=== PATIENT | female | born 1990 | race Caucasian/White ===

== ENCOUNTER 2018-01-14 17:06 | Emergency (ER) | payer SELFPAY ==
--- NOTE | 2018-01-14 17:45 | UC ---
Abdominal Pain Female HPI - HPI Summary HPI Summary: 27-year-old female presents reporting onset of abdominal pain and vomiting at 3 AM yesterday morning. States she had several episodes of vomiting and diarrhea throughout the day yesterday but it has subsided today. She continues to have some mild upper abdominal cramping. She has been able to eat and keep fluids down today. Denies any fever, chills, chest pain, shortness of breath, back or flank pain, dysuria, frequency, urgency, hematuria, or vaginal discharge. Last menstrual period was approximately one month ago. She does have an IUD but does not use any other form of contraception. - History of Current Complaint Chief Complaint: UCAbdominalPain Stated Complaint: ABDOMINAL COMPLAINT Time Seen by Provider: 01/14/18 17:24 Hx Obtained From: Patient Hx Last Menstrual Period: iud Onset/Duration: Sudden Onset, Lasting Days - 1 Severity Currently: Mild Pain Intensity: 6 Location: Epigastric Radiates: No Character: Cramping Aggravating Factor(s): Nothing Alleviating Factor(s): Nothing Associated Signs and Symptoms: Positive: Nausea, Vomiting, Diarrhea. Negative: Fever, Chest Pain, Back Pain, Constipation, Blood in Stool, Urinary Symptoms, Vaginal Discharge Allergies/Adverse Reactions: Allergies Allergy/AdvReac Type Severity Reaction Status Date / Time No Known Allergies Allergy Verified 01/14/18 17:16 Home Medications: Home Medications NK [No Home Medications Reported] 01/14/18 [History Confirmed 01/14/18] PMH/Surg Hx/FS Hx/Imm Hx Previously Healthy: Yes Psychological History: Bipolar Disorder - Surgical History Surgical History: Yes Surgery Procedure, Year, and Place: orif lt arm, choley - Family History Family History: Noncontributory - Social History Occupation: Employed Full-time Lives: With Family - Noncontributory Alcohol Use: Rare Substance Use Type: None Smoking Status (MU): Light Every Day Tobacco Smoker Type: Cigarettes Review of Systems Constitutional: Negative Skin: Negative Respiratory: Negative Cardiovascular: Negative Gastrointestinal: Abdominal Pain, Vomiting, Diarrhea, Nausea Genitourinary: Negative Is Patient Immunocompromised?: No All Other Systems Reviewed And Are Negative: Yes Physical Exam Triage Information Reviewed: Yes Appearance: Well-Appearing, No Pain Distress, Well-Nourished Vital Signs: Initial Vital Signs Temp 98.1 F 01/14/18 17:12 Pulse 75 01/14/18 17:12 Resp 18 01/14/18 17:12 BP 126/89 01/14/18 17:12 Pulse Ox 100 01/14/18 17:12 Vital Signs Reviewed: Yes ENT: Positive: Pharynx normal, TMs normal, Uvula midline Neck: Positive: Supple, Nontender, No Lymphadenopathy Respiratory: Positive: Lungs clear, Normal breath sounds, No respiratory distress Cardiovascular: Positive: RRR, No Murmur Abdomen Description: Positive: No Organomegaly, Soft, Other: - Mild epigastric tenderness,. Negative: CVA Tenderness (R), CVA Tenderness (L), Distended, Guarding Bowel Sounds: Positive: Present Neurological: Positive: Alert Skin Exam: Normal Diagnostics - Laboratory Diagnostic Studies Completed/Ordered: POC UA trace ketones, trace blood. Urine negative. Abd Pain Female Course/Dx - Course Course Of Treatment: 27 year old female presents with onset of abdominal cramping, vomiting, and diarrhea yesterday at 03:00. She states symptoms are subsiding. 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 Her exam was unremarkable except for some mild epigastic tenderness. VSS. POC urinalysis showed trace blood and trace ketones. Urine negative. Symptoms likely from a viral gastroenteritis. Warning symptoms requiring immediate medical evaluation were discussed with patient. Verbalizes understanding and agrees with POC. - Differential Dx/Diagnosis Provider Diagnoses: abdominal pain with nause, vomiting, and diarrhea Discharge - Sign-Out/Discharge Documenting (check all that apply): Patient Departure All imaging exams completed and their final reports reviewed: No Studies - Discharge Plan Condition: Stable Disposition: HOME Patient Education Materials: Acute Nausea and Vomiting (ED), Acute Abdominal Pain (ED) Forms: *Work Release Referrals: No Primary Care Phys,NOPCP [Primary Care Provider] - Additional Instructions: Your urine test performed in the clinic today did not show any evidence of an infection and the urine was negative. With your symptoms improving I suspect that you had a viral illness. Be sure to push fluids to prevent dehydration. Seek immediate medical attention if you develop fever greater than 100.5 F, have worsening of abdominal pain, persistent vomiting, or any worsening of symptoms. - Billing Disposition and Condition Condition: STABLE Disposition: Home - Attestation Statements Provider Attestation: Per institutional requirements, I have reviewed the chart, however, I was not consulted specifically or made aware of this patient by the midlevel provider. I did not personally evaluate, interact with , or disposition this patient.
== END 2018-01-14 18:10 | disposition home or self-care (01) ==
LOC: UCEAST 17:06
DX: R10.10 Upper abdominal pain, unspecified (principal); F31.9 Bipolar disorder, unspecified; F17.210 Nicotine dependence, cigarettes, uncomplicated; R19.7 Diarrhea, unspecified; R11.2 Nausea with vomiting, unspecified; Z97.5 Presence of (intrauterine) contraceptive device
CPT/HCPCS: 81003; 84702; 99201; G0463

== ENCOUNTER 2018-03-28 08:23 | Emergency (ER) | payer BC ==
--- NOTE | 2018-03-28 08:55 | ED ---
Skin Complaint - HPI Summary HPI Summary: This pt is a 27 y/o female presenting to [facility] c/o redness, pruritic and painful area on left arm s/p new tattoo. Pt reports she had her new tattoo finished on her left arm on 03/14/18. 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 She has noticed redness and pruritus since . Pt saw her PCP on 03/23/18 and was prescribed Keflex. She reports missing a dose after misplacing her Keflex bottle but restarted it after she found it. Additionally notes a small rash on her left jaw. Denies any other complaints, fever, chills, chest pain, SOB, nausea, vomiting. Her last tetanus shot was 5 years ago. - History of Current Complaint Chief Complaint: EDRashSkinAbscess Time Seen by Provider: 03/28/18 08:48 Stated Complaint: LEFT ARM INJURY/POSS INFECTION Hx Obtained From: Patient Hx Last Menstrual Period: iud Onset/Duration: Started Days Ago, Still Present Skin Exposure Onset/Duration: Days Ago Timing: Lasting Days Current Severity: Moderate Pain Intensity: 6 Pain Scale Used: 0-10 Numeric Skin Location: Arm - left Character: Pruritus, Pain, Redness Aggravating Symptom(s): Nothing Alleviating Symptom(s): Nothing Associated Signs & Symptoms: Rash Related History: Other: - s/p tattoo - Allergy/Home Medications Allergies/Adverse Reactions: Allergies Allergy/AdvReac Type Severity Reaction Status Date / Time No Known Allergies Allergy Verified 03/28/18 08:41 Home Medications: Home Medications Brexpiprazole [Rexulti] 0.5 mg PO DAILY 03/28/18 [History Confirmed 03/28/18] Cephalexin CAP* [Keflex 500 CAP*] 500 mg PO QID 03/28/18 [History Confirmed ] OLANzapine TAB* [Zyprexa 5 MG TAB*] 5 mg PO BEDTIME 03/28/18 [History Confirmed 03/28/18] carBAMazepine ER TAB(*) [Tegretol Xr TAB(*)] 200 mg PO BID 03/28/18 [History Confirmed 03/28/18] traZODone TAB* [Desyrel TAB*] 50 - 100 mg PO BEDTIME 03/28/18 [History Confirmed 03/28/18] PMH/Surg Hx/FS Hx/Imm Hx Endocrine/Hematology History: Denies: Hx Diabetes Cardiovascular History: Denies: Hx Hypertension - Surgical History Surgery Procedure, Year, and Place: orif lt arm, choley Infectious Disease History: No Infectious Disease History: Denies: Traveled Outside the [place] in Last 30 Days - Family History Known Family History: Negative: Cardiac Disease, Hypertension, Diabetes - Social History Alcohol Use: Rare Substance Use Type: Reports: Marijuana Smoking Status (MU): Heavy Every Day Tobacco Smoker Type: Cigarettes Review of Systems Negative: Fever, Chills Negative: Chest Pain Negative: Shortness Of Breath Negative: Vomiting, Nausea Positive: no symptoms reported, see HPI Skin: Other - POS: redness, itching, and pain on left arm All Other Systems Reviewed And Are Negative: Yes Physical Exam - Summary Physical Exam Summary: Appearance: Well appearing, no pain distress Skin: warm, dry, reflects adequate perfusion. LUE: erythema and swelling of the left forearm. Head/face: normal Eyes: EOMI, KAREN ENT: normal Neck: supple, nontender Respiratory: CTA, breath sounds present Cardiovascular: RRR, pulses symmetrical Abdomen: nontender, soft Musculoskeletal: normal, strength/ROM intact. Neuro: normal, sensory motor intact, A&Ox3 Triage Information Reviewed: Yes Vital Signs On Initial Exam: Initial Vitals Temp Pulse Resp BP Pulse Ox 97.5 F 96 18 134/82 97 03/28/18 08:26 03/28/18 08:26 03/28/18 08:26 03/28/18 08:26 03/28/18 08:26 Vital Signs Reviewed: Yes Diagnostics - Vital Signs Vital Signs Temp Pulse Resp BP Pulse Ox 03/28/18 08:26 97.5 F 96 18 134/82 97 - Laboratory Lab Statement: Any lab studies that have been ordered have been reviewed, and results considered in the medical decision making process. Course/Dx - Course Assessment/Plan: pt is a 27 y/o female who presents with redness, pruritic and painful area on left arm s/p new tattoo. Pt reports she had her new tattoo finished on her left arm on 03/14/18. 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 She has noticed redness and pruritus since . Pt saw her PCP on 03/23/18 and was prescribed Keflex. She reports missing a dose after misplacing her Keflex bottle but restarted it after she found it. Additionally notes a small rash on her left jaw. Denies any other complaints, fever, chills, chest pain, SOB, nausea, vomiting. Her last tetanus shot was 5 years ago, but is unusure. In the ED course the pt was given a tetanus shot and a Bactrim dose. Wound culture was obtained. Pt will be discharged home with follow up from his PCP. He was given a prescription for Bactrim. She was instructed to return to the ED for any new or worsening symptoms. - Differential Diagnoses - Skin Complaint Differential Diagnoses: Cellulitis - Diagnoses Provider Diagnoses: Cellulitis of left forearm Discharge - Sign-Out/Discharge Documenting (check all that apply): Patient Departure - Discharge home - Discharge Plan Condition: Stable Disposition: HOME Prescriptions: Sulfamethox/Trimethoprim DS* [Bactrim DS 800/160 TAB*] 1 tab PO BID #20 tab Patient Education Materials: Cellulitis (ED) Forms: *Work Release Referrals: [facility] [Outside] Additional Instructions: Please follow up with your primary care provider in 3 days. If you don't have one, please follow up with [facility]. RETURN TO THE ED FOR ANY WORSENING OR NEW SYMPTOMS. - Billing Disposition and Condition Condition: STABLE Disposition: Home - Attestation Statements Document Initiated by Brittni: Yes Documenting Scribe: Ingrid Mcbride Provider For Whom Brittni is Documenting (Include Credential): Eric Lynch MD Scribe Attestation: Ingrid Saenz scribed for Eric Lynch MD on 03/28/18 at 0931. Scribe Documentation Reviewed: Yes Provider Attestation: The documentation as recorded by the Ingrid florez accurately reflects the service I personally performed and the decisions made by , Eric Lynch MD Status of Scribe Document: Viewed
[2018-03-28] MEDS ORDERED: Sulfamethox/Trimethoprim DS 800/160* TAB PO ONE (08:56)
[2018-03-28] MEDS ORDERED: Tetan/Diph/Pertus SYR(Tdap)* 0.5 ML SYR(BOOSTRIX) use SYR IM ONE (08:57)
[2018-03-28 09:55] VITALS: BP 128/84
== END 2018-03-28 09:40 | disposition home or self-care (01) ==
LOC: ED 08:23
DX: L03.114 Cellulitis of left upper limb (principal); Z23 Encounter for immunization; F17.210 Nicotine dependence, cigarettes, uncomplicated
CPT/HCPCS: 87070; 87205; 90471; 90715; 99282; A9270-GY

== ENCOUNTER 2019-03-31 13:57 | Emergency (ER) | payer BC ==
--- NOTE | 2019-03-31 14:07 | ED ---
Throat Pain/Nasal Congestion - HPI Summary HPI Summary: Pt. is a 28 y.o female who presents to the ER for right sided jaw pain x 2 weeks. Pt. also notes difficulty swallowing. Pt. denies dental pain, facial swelling, sore throat, h/a, neck pain, ear pain, sinus congestion. Denies past hx. Pain is worse with chewing. Pt. has not taken any over the counter analgesics. Sxs are mild in severity. - History of Current Complaint Chief Complaint: EDFacialInjury Time Seen by Provider: 03/31/19 14:05 Hx Obtained From: Patient - Allergies/Home Medications Allergies/Adverse Reactions: Allergies Allergy/AdvReac Type Severity Reaction Status Date / Time Sulfa (Sulfonamide Allergy Hives Verified 03/31/19 14:04 Antibiotics) Home Medications: Home Medications Norgestrel-Ethinyl Estradiol [Jin-Xsybewyf-21 Tablet] 1 each PO DAILY 03/31/19 [ History Confirmed 03/31/19] PMH/Surg Hx/FS Hx/Imm Hx Previously Healthy: Yes Endocrine/Hematology History: Denies: Hx Diabetes Cardiovascular History: Denies: Hx Hypertension - Surgical History Surgery Procedure, Year, and Place: orif lt arm, choley Infectious Disease History: No Infectious Disease History: Denies: Traveled Outside the [place] in Last 30 Days - Family History Known Family History: Positive: Non-Contributory Negative: Cardiac Disease, Hypertension, Diabetes Family History: Noncontributory - Social History Occupation: Employed Full-time Lives: With Family Alcohol Use: Rare Substance Use Type: Reports: None Smoking Status (MU): Light Every Day Tobacco Smoker Type: Cigarettes Review of Systems Constitutional: Negative Negative: Fever ENT: Other - Right sided jaw pain Cardiovascular: Negative Respiratory: Negative Gastrointestinal: Negative Skin: Negative Neurological: Negative All Other Systems Reviewed And Are Negative: Yes Physical Exam Triage Information Reviewed: Yes Vital Signs On Initial Exam: Initial Vitals Temp Pulse Resp BP Pulse Ox 98.7 F 79 16 175/104 99 03/31/19 13:59 03/31/19 13:59 03/31/19 13:59 03/31/19 13:59 03/31/19 13:59 Vital Signs Reviewed: Yes Appearance: Positive: Well-Appearing Skin: Positive: Warm, Dry Head/Face: Positive: Normal Head/Face Inspection Eyes: Positive: Normal, EOMI, KAREN, Conjunctiva Clear ENT: Positive: Pharynx normal, TMs normal, Uvula midline. Negative: Tonsillar swelling, Tonsillar exudate, Trismus, Muffled voice, Hoarse voice Dental: Positive: Other - Poor dentition throughout. Gingiva erythematous and edematous to right lower teeth. Mild tenderness diffusely along mandible and maxilla. No pain at TMJ. No trismus, muffled voice or submandibular edema. Neck: Positive: Supple, Nontender. Negative: No Lymphadenopathy, Nuchal Rigidity Respiratory/Lung Sounds: Positive: Clear to Auscultation, Breath Sounds Present Cardiovascular: Positive: Normal, RRR Abdomen Description: Positive: Nontender, Soft Neurological: Positive: Normal, CN Intact II-III Psychiatric: Positive: Affect/Mood Appropriate Procedures - Sedation Patient Received Moderate/Deep Sedation with Procedure: No Diagnostics - Vital Signs Vital Signs Temp Pulse Resp BP Pulse Ox 03/31/19 13:59 98.7 F 79 16 175/104 99 - Laboratory Lab Statement: Any lab studies that have been ordered have been reviewed, and results considered in the medical decision making process. EENT Course/Dx - Course Course Of Treatment: Suspect jaw pain is coming from dental infection based on exam. Pt. afebrile and well appearing. Will place on penvk and motrin. To call her dentist tomorrow for apt. maverick. Will return to er for facial swelling, fever , or if concerned. - Diagnoses Provider Diagnoses: Dental infection, Jaw pain Discharge ED - Sign-Out/Discharge Documenting (check all that apply): Patient Departure - Discharge Plan Condition: Good Disposition: HOME Patient Education Materials: Dental Abscess (ED) Referrals: Richard BELTRAN,Mario Husain [Medical Doctor] - Additional Instructions: Please see your dentist as soon as possible Take medication as directed Apply warm compresses Return to ER for fever, facial swelling, increased pain or if concerned - Billing Disposition and Condition Condition: GOOD Disposition: Home - Attestation Statements Provider Attestation: I was available for consult. This patient was seen by the GLENN. The patient was not presented to, seen by, or examined by me. Teddy Shaw MD
[2019-03-31 14:42] VITALS: BP 140/87
== END 2019-03-31 14:36 | disposition home or self-care (01) ==
LOC: ED 13:57
DX: K04.7 Periapical abscess without sinus (principal); F17.210 Nicotine dependence, cigarettes, uncomplicated; Z88.2 Allergy status to sulfonamides
CPT/HCPCS: 99282